=== PATIENT | male | born 1995 | race Caucasian/White ===

== ENCOUNTER 2025-03-10 22:37 | Emergency (ER) | payer SELFPAY ==
[~2025-03-10] VITALS: Ht 180.3 cm; Wt 77.3 kg
[2025-03-10] MEDS: acetaminophen 325mg tablet PO ONE (23:02)
--- NOTE | 2025-03-10 23:05 | Physician Documentation ---
History of Present Illness General Chief Complaint: Laceration Stated Complaint: ARM LACERATION Time Seen by MD: 22:47 History of Present Illness Initial Comments 29-year-old male right-hand dominant presents to the emergency department with a accidental laceration to the left elbow with a machete. He has a proximally 2 cm laceration over the olecranon. Grossly neurologically intact. Excellent radial ulnar pulses. Venous and arterial bleeding. Medication Reconciliation Allergies: Coded Allergies: codeine (Verified Allergy, Unknown, 03/10/25) Review of Systems All Other Systems at this time: Reviewed and Negative Integumentary Laceration left elbow Physical Exam Physical Exam Vital Signs: RN Vital Signs have been reviewed: Yes, Temperature: 98.0, Source: Oral, Heart Rate: 108, Respiratory Rate: 16, BP: 138/84, Pulse Oximetry: 97, Weight: 77.270 Oxygen Flow Rate: 0 General Appearance: alert, WD/WN, moderate distress Head: normal inspection Face: normal inspection Pupils/EOM/Fundus: PERRLA Extremities: normal range of motion Extremities 2 cm complex laceration to the left elbow. Venous and arterial bleeding controlled. Grossly neurologically intact radial median ulnar nerve. Radial and ulnar pulses present. Full range of motion and pronation and supination flexion-extension Motor / Sensory: no motor deficit, no sensory deficit Psychiatric: normal mood/affect Skin: normal color Procedures Laceration/Wound Repair Laceration/Wound Repair : Location: Left elbow Length (cm): 2 Anesthesia: Lidocaine Volume Anesthetic (mls): 3 Irrigated w/ Saline (mls): 500 Undermining: none Foreign Body: not identified Repaired: skin, subcutaneous Wound Repaired With: sutures, gilson Suture Size/Type: other (Gilson) Number of Superficial Sutures: 7 Layer Closure?: Yes Deep Layer Suture Size/Type: 3-0, vicryl Number Deep Layer Sutures: 4 Dressing Applied: simple Splint Applied?: No Tolerated Procedure Well?: yes, no complications Procedure Note Wound was anesthetized with 3-1/2 cc of 1% lidocaine without the use of epinephrine. Explored and irrigated. After achieving adequate anesthesia the subcutaneous layer was closed with 4 times 3-0 Vicryl sutures. Superficial layer was closed with seven gilson. Wound edges well aligned. Patient remains grossly neurologically intact. Full range of motion pronation supination flexion-extension. 5 cc estimated blood loss. Progress Results/Orders Results/Orders Orders - ELISA MELISSA PAC Elbow, Complete (3vw Min) (03/10/25 22:54) Completed Orders - ELISA MELISSA PAC Elbow, Complete (3vw Min) (03/10/25 22:54) Medications Received in ER Medications (Trade) Dose Ordered Sig/Diaz Route PRN Reason Start Time Stop Time Status Last Admin Dose Admin (Tylenol tablet) 650 mg ONCE ONCE PO 03/10/25 22:45 03/10/25 22:46 DC 03/10/25 23:02 650 MG Vital Signs 03/10/25 03/10/25 22:40 23:00 Temp 98.0 98.0 Pulse 105 108 Resp 18 16 B/P (MAP) 138/84 (102) Pulse Ox 99 97 O2 Flow Rate 0 0 Medical Decision Making Differential Diagnosis 29-year-old male with acute laceration to the left elbow requiring wound management. Laceration is complex in severity. Bleeding is controlled. We will obtain x-ray imaging to evaluate for joint involvement & for evaluation of foreign body and/or bony involvement. Please see procedure note. Wound was anesthetized with 1% lidocaine. After achieving adequate anesthesia the wound was aggressively irrigated. Subcutaneous sutures placed. Gilson applied to the epidermis. Patient tolerated procedure well. Please see procedure note. We will be placed on antibiotics prophylactically. No tetanus required at today's visit. Remains grossly neurologically intact radial median ulnar nerve. Recommend close follow up with wound check in 72 hours. [place] to be removed in 10-14 days. Departure Disposition: 01 HOME / SELF CARE / HOMELESS Impression: Primary Impression: Laceration of left elbow Qualified Codes: S51.012A - Laceration without foreign body of left elbow, initial encounter Condition: Improved Discharge Instructions: Laceration Care, Adult, [id number] Additional Instructions: Tonight in the emergency department you had x-rays obtained of your left elbow prior to closure. Please begin antibiotics as directed return to the emergency department in 72 hours for wound check. 10-14 days from today of the gilson removed. Follow up on your tetanus status. Tonight you declined tetanus immunization cut that is believed that he had one last five years. Keep wound clean and dry. Return for any signs of infection in the interim. Thank you for visiting the emergency department of [facility]. Referrals: NO PRIMARY CARE PROVIDER (PCP) Prescriptions Ibuprofen* (Motrin*) 400 Mg Tablet 800 MG PO Q8H for 10 Days, #30 TAB Prov: ELISA MELISSA PAC 03/10/25 Cephalexin*Monohydrate* (Keflex*) 500 Mg Capsule 1 CAP PO TID, #21 CAP Prov: ELISA MELISSA PAC 03/10/25 Education Educated: Patient Educated regarding: diagnosis, treatment Signature Scribe Signature: . Attestation: . ELISA MELISSA PAC March 10, 2025 23:05
[2025-03-10] MEDS ORDERED: IBUP-1984 PO (23:47)
[2025-03-10] MEDS ORDERED: CEPH-585 PO (23:47)
[2025-03-10] MEDS: ibuprofen tablet 400 MG TABLET PO ONE (23:49)
[2025-03-10] MEDS: cephalexin 500mg capsule PO ONE (23:49)
[2025-03-11 00:21] VITALS: BP 139/95; PULSE 102; RESP 16; TEMP 98.2; O2SAT 98
--- NOTE | 2025-03-12 08:08 | RADIOLOGY REPORT ---
Clinical History laceration Comparison None Without Contrast RODNEY DUNCAN, [id number] FINDINGS: Bones: No acute fracture. No destructive osseous abnormality. Alignment: Anatomic. Joints: Unremarkable. No joint effusion identified. Soft tissues: Soft tissue swelling and heterogeneity with superimposed bandage artifact about the elbow. IMPRESSION: 1. No acute bone abnormality. 2. Soft tissue swelling and heterogeneity with superimposed bandage artifact about the elbow. This report was electronically signed by Joel Yi MD on 03/11/2025 3:50:11 AM. AMBROSIO
== END 2025-03-11 00:24 | disposition home or self-care (01) ==
LOC: ER 22:38
DX: S51.012A Laceration without foreign body of left elbow, initial encounter (principal); X58.XXXA Exposure to other specified factors, initial encounter; Y93.89 Activity, other specified; Y92.89 Other specified places as the place of occurrence of the external cause; Y99.8 Other external cause status
CPT/HCPCS: 12001; 73080; 99284; A6449

== ENCOUNTER 2025-03-19 23:10 | Emergency (ER) | payer OTHER ==
[~2025-03-19] VITALS: Ht 180.3 cm; Wt 82.5 kg
[~2025-03-19 23:10] MED LIST: CEPH-585 PO; IBUP-1984 PO
[2025-03-19 23:13] VITALS: TEMP 98.2
--- NOTE | 2025-03-20 01:49 | Physician Documentation ---
History of Present Illness ~ Chief Complaint: Wound Re-Check Stated Complaint: WOUND CHECK Time Seen by MD: 01:48 HPI Patient presents to the emergency room for staple removal. Last seen nine days ago. No complications Tetanus within 5 years?: Yes Medication Reconciliation Allergies: Coded Allergies: codeine (Verified Allergy, Unknown, 03/10/25) Scheduled Cephalexin*Monohydrate* (Keflex*), 1 CAP PO TID Ibuprofen* (Motrin*), 800 MG PO Q8H Review of Systems ROS All review of systems negative except as per HPI Physical Exam Vital Signs: Temperature: 98.2, Source: Temporal, Heart Rate: 105, Respiratory Rate: 16, BP: 156/93, Pulse Oximetry: 18, Weight: 82.500 Oxygen Flow Rate: 0 Physical Exam General: Patient is awake, alert, oriented x4 in no acute distress and well appearing.~ Head: Normocephalic and atraumatic. Eyes: Conjunctival normal. EOMI. PERRL. ENT: Mucous membranes moist. Neck: Supple, trachea is midline. Chest: Clear to auscultation bilaterally without rales, rhonchi, or wheezes. There is no accessory muscle use or retractions. Cardiac: RRR without murmurs, gallops, or rubs. Extremity: A proximally 4 cm laceration to left elbow with no signs of infection Procedures Procedures Staple removal: After examination of patient's wound decision to have merrill removed. After his merrill removed it was noted that patient has lateral aspect of his wound was still pulling apart after staple removal therefore to additional merrill placed with instructions to return 5-7 days for re-evaluation and staple removal. Progress Results/Orders Results/Orders Completed Orders - TEDDY SPEARS MD Bacitracin Ointment (Bacitracin Ointment (03/20/25 02:25) Medications Received in ER Medications (Trade) Dose Ordered Sig/Diaz Route PRN Reason Start Time Stop Time Status Last Admin Dose Admin (bacitracin ointment) 1 applic ONCE ONCE TP 03/20/25 02:25 03/20/25 02:26 DC 03/20/25 02:27 1 APPLIC Vital Signs 03/19/25 23:13 Temp 98.2 Pulse 105 Resp 16 B/P (MAP) 156/93 Pulse Ox 18 O2 Flow Rate 0 Medical Decision Making Findings Patient presents to the emergency room for staple removal. [place] were removed however there was an area of dehiscence on the lateral aspect therefore to additional merrill placed with instructions return in five seven days for staple removal. ER precautions regarding signs of infection discussed Departure Disposition: HOME / SELF CARE / HOMELESS Impression: Primary Impression: Stapled skin wound Condition: Stable Discharge Instructions: Sutures, Merrill, or Adhesive Wound Closure, [id number] Additional Instructions: Return in his additional 5-7 days for the rest of your merrill removed Referrals: NO PRIMARY CARE PROVIDER (PCP) Education Educated: Patient Educated regarding: need for follow up Signature Scribe Signature: No scribe Attestation: The note accurately reflects work and decisions made by me.Teddy Spears MD 03/20/25 02:37 TEDDY SPEARS MD March 20, 2025 01:49
[2025-03-20] MEDS: bacitracin 15gm ointment TP ONE (02:27)
[2025-03-20 02:43] VITALS: BP 123/79; PULSE 85; RESP 16; O2SAT 99
== END 2025-03-20 02:47 | disposition home or self-care (01) ==
LOC: ER 23:11
DX: S51.012D Laceration without foreign body of left elbow, subsequent encounter (principal); Z88.5 Allergy status to narcotic agent; X58.XXXD Exposure to other specified factors, subsequent encounter
CPT/HCPCS: 99282; A6402; A6449